=== PATIENT | female | born 1990 | race Asian ===

== ENCOUNTER 2016-12-19 15:27 | Outpatient (CLI) | payer BC ==
[~2016-12-19] VITALS: Ht 160 cm; Wt 61.8 kg
[~2016-12-19 15:27] MED LIST: IBUP800T PO; OXYC-302 PO; PREN1TAB56 PO
[2016-12-19 16:11] VITALS: BP 102/55
[2016-12-19] MEDS ORDERED: BETAMETHASONE 6 MG/ML, 5ML IM SCH (17:00)
[2016-12-19] MEDS ORDERED: BETAMETHASONE 6 MG/ML, 5ML IM ONE (17:02)
== END 2016-12-19 17:30 | disposition home or self-care (01) ==
LOC: LDOP 15:27
PROVIDERS: ATTEND Obstetrics & Gynecology
DX: O26.893 Other specified pregnancy related conditions, third trimester (principal); R25.2 Cramp and spasm; Z3A.33 33 weeks gestation of pregnancy
CPT/HCPCS: 59025; 81003; 87086; 96372; 99211; J0702; G0463

== ENCOUNTER 2016-12-20 17:02 | Outpatient (CLI) | payer BC ==
[~2016-12-20] VITALS: Ht 160 cm; Wt 70.9 kg
[2016-12-20] MEDS ORDERED: PLEASE ENTER HEIGHT AND WEIGHT MC SCH (17:30)
[2016-12-20] MEDS ORDERED: BETAMETHASONE 6 MG/ML, 5ML IM ONE (17:30)
[2016-12-20 17:35] VITALS: BP 108/63
== END 2016-12-20 17:21 | disposition home or self-care (01) ==
LOC: LDOP 17:02
PROVIDERS: ATTEND Obstetrics & Gynecology
DX: Z23 Encounter for immunization (principal); Z3A.33 33 weeks gestation of pregnancy
CPT/HCPCS: 59025; 99211; J0702; G0463

== ENCOUNTER 2017-01-25 07:41 | Inpatient (IN) | payer BC ==
[~2017-01-25] VITALS: Ht 162.6 cm; Wt 73.6 kg
[~2017-01-25 07:41] MED LIST changes: +IBUP-1223 PO; -IBUP800T PO
[2017-01-25] MEDS ORDERED: OXYTOCIN 30U/ 0.9% NaCL 500ML 500 ML IV ONE (07:43)
[2017-01-25] MEDS ORDERED: PLEASE ENTER HEIGHT AND WEIGHT MC SCH (08:00)
[2017-01-25] MEDS ORDERED: FENTANYL PF 100 MCG/2ML IVPush PRN (08:00)
[2017-01-25] MEDS ORDERED: FENTANYL PF 100 MCG/2ML IV PRN (08:00)
[2017-01-25] MEDS ORDERED: ONDANSETRON 2MG/ML, 2ML IVPush PRN (08:00)
[2017-01-25] MEDS: LACTATED RINGERS 1,000 ML IV SCH ×3 (08:02→13:06)
[2017-01-25 08:03] VITALS: BP 118/70
[2017-01-25 08:18] LABS: HEMATOCRIT 41.2 % (34.6-47.8); HEMOGLOBIN 13.8 g/dL (11.7-16.4); WHITE BLOOD COUNT 9.7 x10^3/uL (3.4-10)
[2017-01-25] MEDS ORDERED: FENTANYL/BUPIV./NS/PF 250 ML EPIDCONT ONE (08:31)
[2017-01-25] MEDS ORDERED: LIDOCAINE/PF 1.5%-EPI 1:200K, 30ML ONE (08:31)
[2017-01-25] MEDS ORDERED: NEWBORN KIT ONE (09:01)
[2017-01-25] MEDS ORDERED: OXYTOCIN 30U/ 0.9% NaCL 500ML 500 ML ONE ×2 (09:01→14:13)
[2017-01-25] MEDS ORDERED: MISOPROSTOL 200 MCG TABLET ONE (09:41)
[2017-01-25] MEDS ORDERED: FENTANYL/BUPIV./NS/PF 250 ML EPIDCONT SCH (09:44)
[2017-01-25] MEDS ORDERED: LACTATED RINGERS 1,000 ML IV SCH (09:44)
[2017-01-25] MEDS ORDERED: OXYTOCIN 30U/ 0.9% NaCL 500ML 500 ML IV PRN (09:48)
[2017-01-25] MEDS ORDERED: LACTATED RINGERS 1,000 ML IVBOLUS PRN (10:00)
[2017-01-25] MEDS: OXYTOCIN 30U/ 0.9% NaCL 500ML 500 ML IV SCH ×2 (13:58→23:58)
[2017-01-25] MEDS ORDERED: CALCIUM CARBONATE 500 MG TAB.CHEW PO PRN (14:00)
[2017-01-25] MEDS ORDERED: MAGNESIUM HYDROXIDE 8%, 30ML UDC PO PRN (14:00)
[2017-01-25] MEDS ORDERED: MISOPROSTOL 200 MCG TABLET PR PRN (14:00)
[2017-01-25] MEDS ORDERED: DIPH,PERTUSS(ACELL),TET VAC/PF NC IM-VACC PRN (14:00)
[2017-01-25] MEDS ORDERED: MISOPROSTOL 200 MCG TABLET PR ONE (14:00)
[2017-01-25] MEDS ORDERED: METHYLERGONOVINE 0.2 MG/ML IM PRN (14:00)
[2017-01-25] MEDS ORDERED: BISACODYL 10 MG SUPP PR PRN (14:00)
[2017-01-25] MEDS ORDERED: MEASLES,MUMPS&RUBELLA VACC/PF 0.5 ML SQ PRN (14:00)
[2017-01-25] MEDS ORDERED: OXYcodone/APAP 5/325MG TABLET PO PRN ×2 (14:00)
[2017-01-25] MEDS ORDERED: OXYTOCIN 10 UNITS/ML, 1ML IM PRN (14:00)
[2017-01-25] MEDS ORDERED: ONDANSETRON 2MG/ML, 2ML IV PRN (14:00)
[2017-01-25] MEDS ORDERED: ACETAMINOPHEN 325 MG TABLET PO PRN ×2 (14:00)
[2017-01-25] MEDS ORDERED: GLYCERIN ADULT SUPP PR PRN (14:00)
[2017-01-25] MEDS ORDERED: DOCUSATE 100 MG CAPSULE PO PRN (14:00)
[2017-01-25] MEDS ORDERED: METHYLERGONOVINE 0.2 MG/ML IM ONE (15:00)
[2017-01-25] MEDS ORDERED: IBUPROFEN 600 MG TABLET ONE (16:01)
[2017-01-25] MEDS: IBUPROFEN 600 MG TABLET PO PRN (16:02)
[2017-01-25 17:22] VITALS: BP 110/70
[2017-01-25 20:00] VITALS: BP 120/70
[2017-01-25 22:27] LABS: HEMOGLOBIN 12.7 g/dL (11.7-16.4); WHITE BLOOD COUNT 14.4 x10^3/uL (3.4-10)
[2017-01-26 00:05] VITALS: BP 107/67
[2017-01-26] MEDS: IBUPROFEN 600 MG TABLET PO PRN ×2 (02:01→10:22)
[2017-01-26 07:40] VITALS: BP 96/62
[2017-01-26] MEDS ORDERED: PRENATAL VIT/IRON/FA 1 EACH TABLET PO SCH (09:00)
[2017-01-26] MEDS: OXYTOCIN 30U/ 0.9% NaCL 500ML 500 ML IV SCH (09:58)
[2017-01-26] MEDS ORDERED: OXYC-302 PO (12:41)
[2017-01-26] MEDS ORDERED: IBUP-1223 PO (12:41)
== END 2017-01-26 16:04 | disposition home or self-care (01) | DRG 774 ==
LOC: LDIP 07:41 → 2NW 16:45 → EDSTATUS 01-29 07:39
PROVIDERS: ADMIT Obstetrics & Gynecology; ATTEND Obstetrics & Gynecology
PROC: 0KQM0ZZ Repair Perineum Muscle, Open Approach (ICD-10-PCS; principal; 2017-01-25)
PROC: 10E0XZZ Delivery of Products of Conception, External Approach (ICD-10-PCS; 2017-01-25)
DX: O24.420 Gestational diabetes mellitus in childbirth, diet controlled (principal); O72.1 Other immediate postpartum hemorrhage; Z37.0 Single live birth; O70.1 Second degree perineal laceration during delivery; Z3A.38 38 weeks gestation of pregnancy
CPT/HCPCS: 36415; 82962; 85025; 86850; 86900; J2210; J2590; J7120